=== PATIENT | male | born 1995 | race African-American/Black ===

== ENCOUNTER 2016-10-20 16:00 | Emergency (ER) | payer OTHER ==
[~2016-10-20 16:00] MED LIST: AUGMENTIN PO; CLARITIN10 MG PO; FLONASE16 GM; HYDROCODON-ACE1 EAC7 PO; IBUPROFEN PO; MOTRIN400 MG PO; ZYRTEC PO; ZYRTEC10 M2 PO
== END 2016-10-20 17:26 | disposition left against medical advice (07) ==
LOC: CED 16:00
DX: Z53.21 Procedure and treatment not carried out due to patient leaving prior to being seen by health care provider (principal)